=== PATIENT | female | born 1985 | race Caucasian/White ===

== ENCOUNTER 2017-03-17 07:03 | Inpatient (IN) | payer BC ==
--- NOTE | 2017-03-17 07:18 | PCM.LDHP ---
L&D History of Present Illness - General Date of Service: 03/17/17 Admit Problem/Dx: Admission Diagnosis/Problem Admission Diagnosis/Problem Source of Information: Patient History Limitations: Reports: No limitations - History of Present Illness Introduction:: Patient is a 31 y/o at 39 3/7 wks who presents for elective IOL due to distance form hospital. Has been doing well since last seen. No major issues. Getting good FM. Some irregular contractions. 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: Ectopic (1), , Spontaneous (2) : 7 Para: 3 LMP (Approximate): Musculoskeletal History: Reports: Fibromyalgia Neurological History: Reports: Headaches, chronic, Seizure, Other (see below) ( History multiple neurological evaluations - 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, but had these diagnoses removed from problem list by subsequent Neurology evaluation) - Past Surgical History Neurological Surgical History: Reports: Other (see below) (lumbar puncture) Social & Family History - Tobacco Use Smoking Status *Q: Current Every Day Smoker - Alcohol Use Alcohol Use History: No - Recreational Drug Use Recreational Drug Use: No H&P Review of Systems - Review of Systems: Review Of Systems: See Below General: Reports: no symptoms Pulmonary: Reports: No Symptoms Cardiovascular: Reports: no symptoms Gastrointestinal: Reports: No symptoms Genitourinary: Reports: no symptoms Musculoskeletal: Reports: no symptoms Psychiatric: Reports: no symptoms Neurological: Reports: Headache L&D Exam - Exam Exam: See Below - Vital Signs Weight: 109.769 kg - OB Specific Contraction Intensity: Irritability movement: active heart tones: present heart tones per min: 135 Heart Rate (FHR) Variability: Moderate (6-25 bmp) Presentation: Vertex - Coker Score Coker Score Cervix Position: Midposition Coker Score Consistency: Soft Coker Score Effacement: 51-70% Coker Score Dilation: 3-4 cm Coker Score 's Station: -2 Coker Score Total: 8 - Exam General: alert, oriented, cooperative Lungs: Clear to auscultation, Normal respiratory effort Cardiovascular: regular rate, regular rhythm Abdomen: soft Genitourinary: Normal external exam Back Exam: normal inspection Extremities: normal inspection Skin: warm, dry, intact - Patient Data Result Diagrams: 03/17/17 07:50 - Problem List (1) 39 weeks gestation of SNOMED Code(s): 61393089 ICD Code: Z3A.39 - 39 WEEKS GESTATION OF Status: Acute Current Visit: Yes (2) Elective induction of labor planned SNOMED Code(s): 523540455 ICD Code: [id number] - Status: Acute Current Visit: Yes (3) Seizure disorder SNOMED Code(s): 874392784 ICD Code: G40.909 - EPILEPSY, UNSP, NOT INTRACTABLE, WITHOUT STATUS EPILEPTICUS Status: Acute Current Visit: Yes Problem List Initiated/Reviewed/Updated: Yes Assessment/Plan Comment:: at 39 3/7 wks presents for elective IOL IOL * CBC and T&S * GBS negative, no need for antibiotics * Pitocin and then AROM when able * Anticipate Reported history of neurological disorders * Will continue home Zonisamide, needs neurology follow up post delivery * Patient with conflicting information whether she truly has ICH or Arnold Chiari. Neurology evaluation in stated she did not carry these diagnoses. Regardless, have made Anesthesia aware last week about patient's induction today. They will discuss pain management options with her today. Ultimately up to patient what, if anything, she would like for pain control in labor.
[2017-03-17] MEDS ORDERED: Acetaminophen 325 MG Tab PO PRN ×2 (07:20→19:49)
[2017-03-17] MEDS ORDERED: Ondansetron 4 MG/2 ML SDV IVPUSH PRN ×2 (07:20→12:07)
[2017-03-17] MEDS ORDERED: Sodium Chloride 0.9% 10 ML Syringe FLUSH PRN (07:20)
[2017-03-17] MEDS ORDERED: Lactated Ringers 1,000 ML IV SCH (07:30)
[2017-03-17] MEDS ORDERED: Oxytocin/Lactated Ringers 10 UNIT/1,000 ML BAG IV SCH ×2 (07:30)
[2017-03-17] MEDS ORDERED: ZONISAMIDE 100 MG CAPSULE PO SCH (09:00)
--- NOTE | 2017-03-17 09:51 | PCM.PREANE ---
Preanesthetic Assessment - Anesthesia/Transfusion/Family Hx Anesthesia History: Prior Anesthesia Without Reaction Type of Anesthesia Reaction: Unknown Family History of Anesthesia Reaction: No Transfusion History: No Prior Transfusion(s) Type of Transfusion Reactions: Reports: Unknown Intubation History: Unknown Additional History: DDD lumbar spine, cervical spondylosis - Review of Systems General: No Symptoms Pulmonary: No Symptoms Cardiovascular: No Symptoms Gastrointestinal: No symptoms Neurological: Headache (hasnt had a headache since the first trimester ), Seizure ("silent seizure activity" noted by about a month ago), Other ( HX of Arnold charari? with increased intracranial pressures, fibromyalagia ) Other: Reports: None - Physical Assessment NPO Status Date: 03/17/17 NPO Status Time: 06:00 Respiratory Rate: 18 Vital Signs: Last Vital Signs Temp 37.1 C 03/17/17 07:20 Pulse 100 03/17/17 07:20 Resp 18 03/17/17 07:20 BP 127/76 03/17/17 07:20 Pulse Ox Height: 1.6 m Weight: 111.856 kg ASA Class: 2 Mental Status: Alert & Oriented x3 Airway Class: Mallampati = 1 Dentition: Reports: Normal Dentition Thyro-Mental Finger Breadths: 3 Mouth Opening Finger Breadths: 3 ROM/Head Extension: Full Lungs: Clear to auscultation, Normal respiratory effort Cardiovascular: Regular Rate, Regular Rhythm - Lab Values: Laboratory Last Values WBC 11.65 K/mm3 (3.98-10.04) H 03/17/17 07:50 RBC 3.95 M/mm3 (3.98-5.22) L 03/17/17 07:50 Hgb 10.6 gm/L (11.2-15.7) L 03/17/17 07:50 Hct 32.2 % (34.1-44.9) L 03/17/17 07:50 MCV 81.5 fl (79.4-94.8) 03/17/17 07:50 MCH 26.8 pg (25.6-32.2) 03/17/17 07:50 MCHC 32.9 g/dl (32.2-35.5) 03/17/17 07:50 RDW Std Deviation 40.9 fL (36.4-46.3) 03/17/17 07:50 Plt Count 278 K/mm3 (182-369) 03/17/17 07:50 MPV 11.3 fl (9.4-12.3) 03/17/17 07:50 - Allergies Allergies/Adverse Reactions: Allergies Allergy/AdvReac Type Severity Reaction Status Date / Time dinoprostone [From Cervidil] Allergy Anaphylactic Verified 03/17/17 07:46 Shock topiramate Allergy Hallucinati Verified 03/17/17 07:46 ons - Blood Blood Available: No Product(s) Available: None - Anesthesia Plan Pre-Op Medication Ordered: None - Acknowledgements Anesthesia Type Planned: Spinal (spinal if patient doesnt have an epidural and we are doing an emergent ), Epidural (Discussed with patient and spouse in detail about her current conditions of the chiari malformation, DDD lumbar, seizures, and she has had 3 prior uneventful epidurals. Patient has all questions answered. ) Pt an Appropriate Candidate for the Planned Anesthesia: Yes Alternatives and Risks of Anesthesia Discussed w Pt/Guardian: Yes Pt/Guardian Understands and Agrees with Anesthesia Plan: Yes PreAnesthesia Questionnaire Respiratory History: Reports: Other (see below) Other Respiratory History: snoring [employer] History: Reports: Ectopic , , Spontaneous Musculoskeletal History: Reports: Fibromyalgia, Other (see below) Other Musculoskeletal History: chronic pain. Spondylosis of cervical spine. Degenerative disc disease thoracis and lumbar. Bursitis of bilateral hips and knees. Neurological History: Reports: Headaches, chronic, Seizure Psychiatric History: Reports: Anxiety, Depression - Past Surgical History HEENT Surgical History: Reports: Oral surgery - SUBSTANCE USE Smoking Status *Q: Current Every Day Smoker Tobacco Use Within Last Twelve Months: Cigarettes Recreational Drug Use History: No - HOME MEDS Home Medications: Home Meds Acetaminophen with Codeine [Tylenol with Codeine #3 Tablet] 03/17/17 [History] Gabapentin [Neurontin] 400 mg PO TID 03/17/17 [History] ATF521/Iron Fumarate/FA/DSS [ 19 Tablet] 03/17/17 [History] Zonisamide [Zonegran] 1 cap PO BID 03/17/17 [History] diphenhydrAMINE [Benadryl] 03/17/17 [History] - CURRENT (IN HOUSE) MEDS Current Meds: Current Medications Acetaminophen (Tylenol) 650 mg PO Q4H PRN PRN Reason: Pain (Mild 1-3) and fever Lactated Ringer's (Ringers, Lactated) 1,000 mls @ 40 mls/hr IV ASDIRECTED [facility] Last Admin: 03/17/17 08:34 Dose: 40 mls/hr Oxytocin/Lactated Ringer's (Pitocin In Lr 10 Units/1,000 Ml) 10 unit in 1,000 mls @ 500 mls/hr IV TITRATE KATIE PRN Reason: Protocol Oxytocin/Lactated Ringer's (Pitocin In Lr 10 Units/1,000 Ml) 10 unit in 1,000 mls @ 12 mls/hr IV TITRATE KATIE; 2 MUNITS/MIN PRN Reason: Protocol Last Titration: 03/17/17 09:18 Dose: 4 munits/min, 24 mls/hr Nalbuphine HCl (Nubain) 10 mg IVPUSH Q2H PRN PRN Reason: Pain (moderate 4-6) Ondansetron HCl (Zofran) 4 mg IVPUSH Q4H PRN PRN Reason: Nausea/Vomiting Zonisamide 100 Mg (Capsule) 0 each PO BID [facility] Last Admin: 03/17/17 08:35 Dose: 1 each Sodium Chloride (Saline Flush) 10 ml FLUSH ASDIRECTED PRN PRN Reason: Keep Vein Open
[2017-03-17] MEDS ORDERED: ePHEDrine 50 MG/ML SDV IVPUSH PRN (12:07)
[2017-03-17] MEDS ORDERED: fentaNYL 100 MCG/2 ML SDV EPIDUR PRN (12:07)
[2017-03-17] MEDS ORDERED: diphenhydrAMINE 50 MG/ML SDV IVPUSH PRN (12:07)
[2017-03-17] MEDS ORDERED: Bupivacaine/fentaNYL/NS 100 ML Bag EPIDUR SCH (12:15)
--- NOTE | 2017-03-17 12:20 | PCM.PNLD ---
Labor Progress Note - VS & Meds Vital Signs: Last Vital Signs Temp 37.1 C 03/17/17 07:20 Pulse 100 03/17/17 07:20 Resp 18 03/17/17 10:08 BP 127/76 03/17/17 07:20 Pulse Ox Active Medications: Current Medications Acetaminophen (Tylenol) 650 mg PO Q4H PRN PRN Reason: Pain (Mild 1-3) and fever Diphenhydramine HCl (Benadryl) 25 mg IVPUSH Q6H PRN PRN Reason: Pruritis Ephedrine Sulfate (Ephedrine Sulfate) 5 mg IVPUSH ASDIRECTED PRN PRN Reason: Hypotension Fentanyl (Sublimaze) 100 mcg EPIDUR Q3H PRN PRN Reason: Pain Fentanyl/Bupivacaine HCl (Fentanyl/Bupivacaine/Ns 2 Mcg-0.125% 100 Ml) 100 ml EPIDUR ASDIRECTED KATIE Lactated Ringer's (Ringers, Lactated) 1,000 mls @ 40 mls/hr IV ASDIRECTED KATIE Last Admin: 03/17/17 08:34 Dose: 40 mls/hr Oxytocin/Lactated Ringer's (Pitocin In Lr 10 Units/1,000 Ml) 10 unit in 1,000 mls @ 500 mls/hr IV TITRATE KATIE PRN Reason: Protocol Oxytocin/Lactated Ringer's (Pitocin In Lr 10 Units/1,000 Ml) 10 unit in 1,000 mls @ 12 mls/hr IV TITRATE KATIE; 2 MUNITS/MIN PRN Reason: Protocol Last Titration: 03/17/17 12:05 Dose: 6 munits/min, 36 mls/hr Nalbuphine HCl (Nubain) 10 mg IVPUSH Q2H PRN PRN Reason: Pain (moderate 4-6) Ondansetron HCl (Zofran) 4 mg IVPUSH Q4H PRN PRN Reason: Nausea/Vomiting Ondansetron HCl (Zofran) 4 mg IVPUSH ONETIME PRN PRN Reason: Nausea/Vomiting Zonisamide 100 Mg (Capsule) 0 each PO BID KATIE Last Admin: 03/17/17 08:35 Dose: 1 each Sodium Chloride (Saline Flush) 10 ml FLUSH ASDIRECTED PRN PRN Reason: Keep Vein Open - Uterine Contractions Uterine Monitoring Mode: External [place] Contraction Intensity: Moderate Uterine Resting Tone: Soft - Monitoring Monitor Mode: External Ultrasound Heart Rate (FHR) Baseline: 125 Heart Rate (FHR) Variability: Moderate (6-25 bmp) Accelerations: Present, 15x15 Decelerations: None Strip Review: Category I - Vaginal Exam Dilation (cm): 3 Effacement (Percent): 80 Station: 0 Cervical Position: Posterior - Labor Progress (Free Text) Labor Progress: Patient doing well. On 6 of pitocin. Offered AROM, but patient declines due to feeling uncomfortable with check. Will continue present management. Nursing to assess in 2-3 hours. If no change and not able to go up on pitocin due to frequency of contractions and re-discuss AROM.
--- NOTE | 2017-03-17 15:35 | PCM.PNLD ---
Labor Progress Note - VS & Meds Vital Signs: Last Vital Signs Temp 37.1 C 03/17/17 07:20 Pulse 100 03/17/17 07:20 Resp 18 03/17/17 10:08 BP 127/76 03/17/17 07:20 Pulse Ox Active Medications: Current Medications Acetaminophen (Tylenol) 650 mg PO Q4H PRN PRN Reason: Pain (Mild 1-3) and fever Diphenhydramine HCl (Benadryl) 25 mg IVPUSH Q6H PRN PRN Reason: Pruritis Ephedrine Sulfate (Ephedrine Sulfate) 5 mg IVPUSH ASDIRECTED PRN PRN Reason: Hypotension Fentanyl (Sublimaze) 100 mcg EPIDUR Q3H PRN PRN Reason: Pain Fentanyl/Bupivacaine HCl (Fentanyl/Bupivacaine/Ns 2 Mcg-0.125% 100 Ml) 100 ml EPIDUR ASDIRECTED KATIE Lactated Ringer's (Ringers, Lactated) 1,000 mls @ 40 mls/hr IV ASDIRECTED KATIE Last Admin: 03/17/17 08:34 Dose: 40 mls/hr Oxytocin/Lactated Ringer's (Pitocin In Lr 10 Units/1,000 Ml) 10 unit in 1,000 mls @ 500 mls/hr IV TITRATE KATIE PRN Reason: Protocol Oxytocin/Lactated Ringer's (Pitocin In Lr 10 Units/1,000 Ml) 10 unit in 1,000 mls @ 12 mls/hr IV TITRATE KATIE; 2 MUNITS/MIN PRN Reason: Protocol Last Titration: 03/17/17 14:16 Dose: 6 munits/min, 36 mls/hr Nalbuphine HCl (Nubain) 10 mg IVPUSH Q2H PRN PRN Reason: Pain (moderate 4-6) Ondansetron HCl (Zofran) 4 mg IVPUSH Q4H PRN PRN Reason: Nausea/Vomiting Ondansetron HCl (Zofran) 4 mg IVPUSH ONETIME PRN PRN Reason: Nausea/Vomiting Zonisamide 100 Mg (Capsule) 0 each PO BID KATIE Last Admin: 03/17/17 08:35 Dose: 1 each Sodium Chloride (Saline Flush) 10 ml FLUSH ASDIRECTED PRN PRN Reason: Keep Vein Open - Uterine Contractions Uterine Monitoring Mode: External [place] Contraction Intensity: Moderate Uterine Resting Tone: Soft - Monitoring Monitor Mode: External Ultrasound Heart Rate (FHR) Baseline: 130 Heart Rate (FHR) Variability: Moderate (6-25 bmp) Accelerations: Present, 15x15 Decelerations: None Strip Review: Category I - Vaginal Exam Dilation (cm): 3 Effacement (Percent): 80 Station: 0 Cervical Position: Posterior - Labor Progress (Free Text) Labor Progress: Patient doing well. Still only on 6 of pitocin due to frequency of contractions. No cervical change in last 2.5 hours. AROM performed with release of clear fluid. Continue present management.
[2017-03-17] MEDS: Nalbuphine 20 MG/1 ML Amp IVPUSH PRN ×2 (16:20→18:21)
--- NOTE | 2017-03-17 17:27 | PCM.PNLD ---
Labor Progress Note - VS & Meds Vital Signs: Last Vital Signs Temp 37.1 C 03/17/17 07:20 Pulse 100 03/17/17 07:20 Resp 18 03/17/17 10:08 BP 127/76 03/17/17 07:20 Pulse Ox Active Medications: Current Medications Acetaminophen (Tylenol) 650 mg PO Q4H PRN PRN Reason: Pain (Mild 1-3) and fever Diphenhydramine HCl (Benadryl) 25 mg IVPUSH Q6H PRN PRN Reason: Pruritis Ephedrine Sulfate (Ephedrine Sulfate) 5 mg IVPUSH ASDIRECTED PRN PRN Reason: Hypotension Fentanyl (Sublimaze) 100 mcg EPIDUR Q3H PRN PRN Reason: Pain Fentanyl/Bupivacaine HCl (Fentanyl/Bupivacaine/Ns 2 Mcg-0.125% 100 Ml) 100 ml EPIDUR ASDIRECTED KATIE Lactated Ringer's (Ringers, Lactated) 1,000 mls @ 40 mls/hr IV ASDIRECTED KATIE Last Admin: 03/17/17 08:34 Dose: 40 mls/hr Oxytocin/Lactated Ringer's (Pitocin In Lr 10 Units/1,000 Ml) 10 unit in 1,000 mls @ 500 mls/hr IV TITRATE KATIE PRN Reason: Protocol Oxytocin/Lactated Ringer's (Pitocin In Lr 10 Units/1,000 Ml) 10 unit in 1,000 mls @ 12 mls/hr IV TITRATE KATIE; 2 MUNITS/MIN PRN Reason: Protocol Last Titration: 03/17/17 16:24 Dose: 4 munits/min, 24 mls/hr Nalbuphine HCl (Nubain) 10 mg IVPUSH Q2H PRN PRN Reason: Pain (moderate 4-6) Last Admin: 03/17/17 16:20 Dose: 10 mg Ondansetron HCl (Zofran) 4 mg IVPUSH Q4H PRN PRN Reason: Nausea/Vomiting Ondansetron HCl (Zofran) 4 mg IVPUSH ONETIME PRN PRN Reason: Nausea/Vomiting Zonisamide 100 Mg (Capsule) 0 each PO BID KATIE Last Admin: 03/17/17 08:35 Dose: 1 each Sodium Chloride (Saline Flush) 10 ml FLUSH ASDIRECTED PRN PRN Reason: Keep Vein Open - Uterine Contractions Uterine Monitoring Mode: External [place] Contraction Intensity: Moderate Uterine Resting Tone: Soft - Monitoring Monitor Mode: External Ultrasound Heart Rate (FHR) Baseline: 120 Heart Rate (FHR) Variability: Moderate (6-25 bmp) Accelerations: Present, 15x15 Decelerations: None Strip Review: Category I - Vaginal Exam Dilation (cm): 5 Effacement (Percent): 90 Station: 0 Cervical Position: Posterior - Labor Progress (Free Text) Labor Progress: Doing well. Feeling more pressure at times. Cervix posterior, but more dilated. Pitocin down to 4. Continue present management.
[2017-03-17] MEDS ORDERED: Lidocaine 1% 50 ML MDV ONE (19:17)
[2017-03-17] MEDS ORDERED: fentaNYL 100 MCG/2 ML SDV IVPUSH ONE (19:23)
[2017-03-17] MEDS ORDERED: Lidocaine 1% 10 ML MDV INJECT ONE (19:24)
--- NOTE | 2017-03-17 19:42 | PCM.DEL ---
L & D Note - General Info Date of Service: 03/17/17 - Delivery Note Labor: induced by ARM, induced by oxytocin Delivery Outcome: Livebirth Infant Delivery Method: Spontaneous Vaginal Delivery Infant Delivery Mode: Spontaneous Presentation: Right Occiput Posterior (ROP) Nuchal cord: present Anesthesia Type: None Anesthetic: lidocaine (xylocaine) 1% plain Local anesthetic volume: 5cc Amniotic Fluid Description: Clear Episiotomy Type: None Laceration: 2nd degree Suture type: vicryl Suture size: 2-0 Placenta: intact, spontaneous Cord: 3 vessels Estimated blood loss: 300 Resuscitation needed: Yes : bulb syringe, stimulated, warmed, blanket used, warmer used Score 1 min: 9 Score 5 min: 9 Delivery Comments (Free Text/Narrative):: Patient found to be complete and began pushing. With maternal pushing effort head delivered from an ROP presentation. Nuchal cord present, but not able to be reduced due to speed of delivery. With gentle traction shoulders and body delivered. placed on maternal abdomen. Cord clamped and cut. Cord blood obtained. Placenta allowed time to separate and spontaneously expelled. Inspection of the perineum showed a small 2nd degree laceration. Patient given 100 mcg of fentanyl and small amount of 1% lidocaine infiltrated for local anesthesia. Repair then done with a 2-0 vicryl rapide in the typical fashion. - Patient Data Vitals - most recent: Last Vital Signs Temp 37.1 C 03/17/17 07:20 Pulse 100 03/17/17 07:20 Resp 18 03/17/17 10:08 BP 127/76 03/17/17 07:20 Pulse Ox Weight - most recent: 111.856 kg I&O - last 24 hours: Intake & Output 03/17/17 03/17/17 03/17/17 06:59 14:59 22:59 Intake Total 1000 Balance 1000 Lab Results last 24 hrs: Laboratory Results - last 24 hr 03/17/17 03/17/17 Range/Units 07:50 07:50 WBC 11.65 H (3.98-10.04) K/mm3 RBC 3.95 L (3.98-5.22) M/mm3 Hgb 10.6 L (11.2-15.7) gm/L Hct 32.2 L (34.1-44.9) % MCV 81.5 (79.4-94.8) fl MCH 26.8 (25.6-32.2) pg MCHC 32.9 (32.2-35.5) g/dl RDW Std Deviation 40.9 (36.4-46.3) fL Plt Count 278 (182-369) K/mm3 MPV 11.3 (9.4-12.3) fl Blood Type A POSITIVE Gel Antibody Screen Negative Med Orders - Current: Current Medications Acetaminophen (Tylenol) 650 mg PO Q4H PRN PRN Reason: Pain (Mild 1-3) and fever Diphenhydramine HCl (Benadryl) 25 mg IVPUSH Q6H PRN PRN Reason: Pruritis Ephedrine Sulfate (Ephedrine Sulfate) 5 mg IVPUSH ASDIRECTED PRN PRN Reason: Hypotension Fentanyl (Sublimaze) 100 mcg EPIDUR Q3H PRN PRN Reason: Pain Fentanyl/Bupivacaine HCl (Fentanyl/Bupivacaine/Ns 2 Mcg-0.125% 100 Ml) 100 ml EPIDUR ASDIRECTED KATIE Lactated Ringer's (Ringers, Lactated) 1,000 mls @ 40 mls/hr IV ASDIRECTED KATIE Last Admin: 03/17/17 08:34 Dose: 40 mls/hr Oxytocin/Lactated Ringer's (Pitocin In Lr 10 Units/1,000 Ml) 10 unit in 1,000 mls @ 500 mls/hr IV TITRATE KATIE PRN Reason: Protocol Oxytocin/Lactated Ringer's (Pitocin In Lr 10 Units/1,000 Ml) 10 unit in 1,000 mls @ 12 mls/hr IV TITRATE KATIE; 2 MUNITS/MIN PRN Reason: Protocol Last Titration: 03/17/17 19:11 Dose: 0 munits/min, 0 mls/hr Nalbuphine HCl (Nubain) 10 mg IVPUSH Q2H PRN PRN Reason: Pain (moderate 4-6) Last Admin: 03/17/17 18:21 Dose: 10 mg Non-Formulary Medication (Gabapentin) 400 mg PO TID KATIE Non-Formulary Medication (Zonisamide [Zonegran]) 1 cap PO BID KATIE Ondansetron HCl (Zofran) 4 mg IVPUSH Q4H PRN PRN Reason: Nausea/Vomiting Ondansetron HCl (Zofran) 4 mg IVPUSH ONETIME PRN PRN Reason: Nausea/Vomiting Zonisamide 100 Mg (Capsule) 0 each PO BID KATIE Last Admin: 03/17/17 08:35 Dose: 1 each Sodium Chloride (Saline Flush) 10 ml FLUSH ASDIRECTED PRN PRN Reason: Keep Vein Open Discontinued Medications Fentanyl (Sublimaze) 100 mcg IVPUSH ONETIME ONE Stop: 03/17/17 19:24 Last Admin: 03/17/17 19:20 Dose: 100 mcg Lidocaine HCl (Xylocaine 1%) Confirm Administered Dose 50 ml .ROUTE .STK-MED ONE Stop: 03/17/17 19:18 Last Admin: 03/17/17 19:26 Dose: Not Given Lidocaine HCl (Xylocaine 1%) 10 ml INJECT ONETIME ONE Stop: 03/17/17 19:25 Last Admin: 03/17/17 19:25 Dose: 10 ml - Problem List & Annotations (1) 39 weeks gestation of SNOMED Code(s): 89700601 Code(s): Z3A.39 - 39 WEEKS GESTATION OF Status: Acute Current Visit: Yes (2) Elective induction of labor planned SNOMED Code(s): 200937661 Code(s): FVY0664 - Status: Acute Current Visit: Yes (3) Seizure disorder SNOMED Code(s): 197808971 Code(s): G40.909 - EPILEPSY, UNSP, NOT INTRACTABLE, WITHOUT STATUS EPILEPTICUS Status: Acute Current Visit: Yes - Problem List Review Problem List Initiated/Reviewed/Updated: Yes - My Orders Last 24 Hours: My Active Orders 03/17/17 07:20 Patient Status [ADT] Routine Activity as Tolerated [RC] PFP Communication Order [RC] ASDIRECTED Communication Order [RC] ASDIRECTED Notify Provider [RC] ASDIRECTED Notify Provider [RC] PRN Vital Signs [RC] PER UNIT ROUTINE Acetaminophen [Tylenol] 650 mg PO Q4H PRN Nalbuphine [Nubain] 10 mg IVPUSH Q2H PRN Ondansetron [Zofran] 4 mg IVPUSH Q4H PRN Sodium Chloride 0.9% [Saline Flush] 10 ml FLUSH ASDIRECTED PRN Electronic Heart Tones Ext w TOCO [WOMSER] Routine Electronic Heart Tones Internal [WOMSER] Per Unit Routine Peripheral IV Insertion Adult [OM.PC] Routine Resuscitation Status Routine 03/17/17 07:21 Heart Tones [RC] ASDIRECTED Peripheral IV Care [RC] . DIRECTED 03/17/17 07:30 Lactated Ringers [Ringers, Lactated] 1,000 ml IV ASDIRECTED Oxytocin/Lactated Ringers [Pitocin in LR 10 Units/1,000 ML] 10 unit in 1,000 ml IV TITRATE Oxytocin/Lactated Ringers [Pitocin in LR 10 Units/1,000 ML] 10 unit in 1,000 ml IV TITRATE 03/17/17 07:50 PATIENT RETYPE [BBK] Routine TYPE AND SCREEN [BBK] Routine 03/17/17 09:00 Patient's Own Medication [Ptom] 0 each PO BID 03/17/17 19:39 Patient Status Manage Transfer [TRANSFER] Routine 03/17/17 21:00 Gabapentin 400 mg PO TID Zonisamide [Zonegran] 1 cap PO BID 03/17/17 Breakfast Regular Diet [DIET] - Assessment Assessment:: G7 now [id number] PPD#0 from at 39 3/7 wks - Plan Plan:: * Routine cares * Encourage breast feeding * Discharge home in 1-2 days Reported history of neurological disorders and chronic headaches * Will continue home Zonisamide - acceptable in breast feeding, but will combine with formula feeding. Lact Med database reviewed. * Hold Gabapentin for now * T3 to be ordered * Needs Neurology follow up after delivery
[2017-03-17] MEDS ORDERED: Lanolin 100% Cream 7 GM Tube TOP PRN (19:49)
[2017-03-17] MEDS ORDERED: Benzocaine/Menthol 20%-0.5% Spray 56 GM Canister TOP PRN (19:49)
[2017-03-17] MEDS ORDERED: Docusate Sodium 100 MG Cap PO PRN (19:49)
[2017-03-17] MEDS ORDERED: Witch Hazel Medicated Pads 100/Jar TOP PRN (19:49)
[2017-03-17] MEDS ORDERED: ZONISAMIDE PO SCH (21:00)
[2017-03-17] MEDS ORDERED: Non-Formulary Medication 1 Each (Gabapentin 400 MG) PO SCH (21:00)
[2017-03-17] MEDS: Ibuprofen 600 MG Tab PO PRN (21:52)
[2017-03-17] MEDS: ZONISAMIDE 100 MG CAPSULE PO SCH (21:53)
--- NOTE | 2017-03-18 07:03 | PCM.PNPP ---
- General Info Date of Service: 03/18/17 Functional Status: Reports: pain controlled, tolerating diet, ambulating, urinating - Review of Systems General: Reports: No Symptoms Pulmonary: Reports: no symptoms Cardiovascular: Reports: No Symptoms Gastrointestinal: Reports: No symptoms Genitourinary: Reports: no symptoms - Patient Data Vital Signs - most recent: Last Vital Signs Temp 36.4 C 03/18/17 03:51 Pulse 85 03/18/17 03:51 Resp 18 03/18/17 03:51 BP 118/59 L 03/18/17 03:51 Pulse Ox 100 03/18/17 03:51 Weight - most recent: 111.856 kg I&O - last 24 hours: Intake & Output 03/17/17 03/18/17 03/18/17 22:59 06:59 14:59 Intake Total 1000 Balance 1000 Lab Results - last 24 hrs: Laboratory Results - last 24 hr 03/17/17 03/17/17 Range/Units 07:50 07:50 WBC 11.65 H (3.98-10.04) K/mm3 RBC 3.95 L (3.98-5.22) M/mm3 Hgb 10.6 L (11.2-15.7) gm/L Hct 32.2 L (34.1-44.9) % MCV 81.5 (79.4-94.8) fl MCH 26.8 (25.6-32.2) pg MCHC 32.9 (32.2-35.5) g/dl RDW Std Deviation 40.9 (36.4-46.3) fL Plt Count 278 (182-369) K/mm3 MPV 11.3 (9.4-12.3) fl Blood Type A POSITIVE Gel Antibody Screen Negative Med Orders - Current: Current Medications Acetaminophen (Tylenol) 650 mg PO Q4H PRN PRN Reason: mild pain or fever Acetaminophen/Codeine Phosphate (Tylenol With Codeine No.3 300mg/30mg) 2 tab PO Q4H PRN PRN Reason: Pain (moderate 4-6) Benzocaine/Menthol (Dermoplast Pain Relief [place]) 0 gm TOP ASDIRECTED PRN PRN Reason: Perineal Comfort Measure Last Admin: 03/17/17 21:52 Dose: 1 applic Docusate Sodium (Colace) 100 mg PO BID PRN PRN Reason: Constipation Last Admin: 03/18/17 00:29 Dose: 100 mg Emollient Ointment (Lansinoh Hpa) 0 gm TOP ASDIRECTED PRN PRN Reason: Sore Nipples Ibuprofen (Motrin) 600 mg PO Q6H PRN PRN Reason: Mild pain or fever Last Admin: 03/17/17 21:52 Dose: 600 mg Zonisamide 100 Mg (Capsule) 0 each PO BID KATIE Last Admin: 03/17/17 21:53 Dose: 1 each Witch Kalie (Tucks) 1 pad TOP ASDIRECTED PRN PRN Reason: Hemorrhoid pain Last Admin: 03/17/17 21:52 Dose: 1 applic Discontinued Medications Acetaminophen (Tylenol) 650 mg PO Q4H PRN PRN Reason: Pain (Mild 1-3) and fever Diphenhydramine HCl (Benadryl) 25 mg IVPUSH Q6H PRN PRN Reason: Pruritis Ephedrine Sulfate (Ephedrine Sulfate) 5 mg IVPUSH ASDIRECTED PRN PRN Reason: Hypotension Fentanyl (Sublimaze) 100 mcg EPIDUR Q3H PRN PRN Reason: Pain Fentanyl (Sublimaze) 100 mcg IVPUSH ONETIME ONE Stop: 03/17/17 19:24 Last Admin: 03/17/17 19:20 Dose: 100 mcg Fentanyl/Bupivacaine HCl (Fentanyl/Bupivacaine/Ns 2 Mcg-0.125% 100 Ml) 100 ml EPIDUR ASDIRECTED KATIE Lactated Ringer's (Ringers, Lactated) 1,000 mls @ 40 mls/hr IV ASDIRECTED KATIE Last Admin: 03/17/17 08:34 Dose: 40 mls/hr Oxytocin/Lactated Ringer's (Pitocin In Lr 10 Units/1,000 Ml) 10 unit in 1,000 mls @ 500 mls/hr IV TITRATE KATIE PRN Reason: Protocol Oxytocin/Lactated Ringer's (Pitocin In Lr 10 Units/1,000 Ml) 10 unit in 1,000 mls @ 12 mls/hr IV TITRATE KATIE; 2 MUNITS/MIN PRN Reason: Protocol Last Titration: 03/17/17 19:11 Dose: 0 munits/min, 0 mls/hr Lidocaine HCl (Xylocaine 1%) Confirm Administered Dose 50 ml .ROUTE .STK-MED ONE Stop: 03/17/17 19:18 Last Admin: 03/17/17 19:26 Dose: Not Given Lidocaine HCl (Xylocaine 1%) 10 ml INJECT ONETIME ONE Stop: 03/17/17 19:25 Last Admin: 03/17/17 19:25 Dose: 10 ml Nalbuphine HCl (Nubain) 10 mg IVPUSH Q2H PRN PRN Reason: Pain (moderate 4-6) Last Admin: 03/17/17 18:21 Dose: 10 mg Non-Formulary Medication (Gabapentin) 400 mg PO TID KATIE Non-Formulary Medication (Zonisamide [Zonegran]) 1 cap PO BID KATIE Ondansetron HCl (Zofran) 4 mg IVPUSH Q4H PRN PRN Reason: Nausea/Vomiting Ondansetron HCl (Zofran) 4 mg IVPUSH ONETIME PRN PRN Reason: Nausea/Vomiting Zonisamide 100 Mg (Capsule) 0 each PO BID KATIE Last Admin: 03/17/17 08:35 Dose: 1 each Sodium Chloride (Saline Flush) 10 ml FLUSH ASDIRECTED PRN PRN Reason: Keep Vein Open - Infant Interaction Disposition, : [place] in Room with Family Infant Interaction: Holding Infant Feeding: Bottle Fed Infant Support Person: - Recovery Exam Fundal Tone: Firm Fundal Level: 1 Fingerbreadths Below Umbilicus Fundal Placement: Midline Lochia Amount: Small Lochia Color: Rubra/Red Bladder Status: Voiding - Exam General: alert, oriented, cooperative Abdomen: soft, no tenderness Extremities: edema Skin: warm, dry, intact - Problem List & Annotations (1) 39 weeks gestation of SNOMED Code(s): 38631332 Code(s): Z3A.39 - 39 WEEKS GESTATION OF Status: Acute Current Visit: Yes (2) Elective induction of labor planned SNOMED Code(s): 861085276 Code(s): [id number] - Status: Acute Current Visit: Yes (3) Seizure disorder SNOMED Code(s): 562465157 Code(s): G40.909 - EPILEPSY, UNSP, NOT INTRACTABLE, WITHOUT STATUS EPILEPTICUS Status: Acute Current Visit: Yes (4) Vaginal delivery SNOMED Code(s): 984224555 Code(s): O80 - ENCOUNTER FOR FULL-TERM UNCOMPLICATED DELIVERY Status: Acute Current Visit: Yes - Problem List Review Problem List Initiated/Reviewed/Updated: Yes - My Orders Last 24 Hours: My Active Orders 03/17/17 07:20 Resuscitation Status Routine 03/17/17 07:21 Heart Tones [RC] ASDIRECTED 03/17/17 19:49 Activity as Tolerated [RC] PER UNIT ROUTINE Vital Signs [RC] 04,12,20 Acetaminophen [Tylenol] 650 mg PO Q4H PRN Acetaminophen/Codeine [Tylenol with Codeine No.3 300MG/30MG] 2 tab PO Q4H PRN Benzocaine/Menthol [Dermoplast Pain Relief [place]] See Dose Instructions TOP ASDIRECTED PRN Docusate Sodium [Colace] 100 mg PO BID PRN Ibuprofen [Motrin] 600 mg PO Q6H PRN Lanolin [Lansinoh HPA] See Dose Instructions TOP ASDIRECTED PRN Witch Kalie [Tucks] 1 pad TOP ASDIRECTED PRN Assess Lochia [WOMSER] Per Unit Routine Assess Uterine Involution [WOMSER] Per Unit Routine Breast Pump [WOMSER] Per Unit Routine Heat Therapy [OM.PC] PRN Ice Therapy [OM.PC] Per Unit Routine Perineal Care [OM.PC] Per Unit Routine Peripheral IV Discontinue [OM.PC] Routine Sitz Bath [OM.PC] Per Unit Routine 03/17/17 21:00 Patient's Own Medication [Ptom] 0 each PO BID 03/17/17 Dinner Regular Diet [DIET] 03/18/17 19:49 Heat Therapy [OM.PC] PRN - Assessment Assessment:: G7 now [id number] PPD#1 from at 39 3/7 wks - Plan Plan:: * Routine cares * Encourage breast feeding * Discharge home possibly today depending upon pediatric evaluation of baby Reported history of neurological disorders and chronic headaches * Will continue home Zonisamide - acceptable in breast feeding, but will combine with formula feeding. Lact Med database reviewed. * Hold Gabapentin for now - patient states she did take her own medication last night. Is aware of risks of multiple medications that could cause sedation in baby * Needs Neurology follow up after delivery
[2017-03-18] MEDS: ZONISAMIDE 100 MG CAPSULE PO SCH (09:40)
[2017-03-18] MEDS: Acetaminophen/Codeine 300-30 MG Tab PO PRN ×2 (09:44→19:26)
[2017-03-18] MEDS: Ibuprofen 600 MG Tab PO PRN (11:39)
[2017-03-18 15:36] VITALS: BP 108/80
--- NOTE | 2017-03-18 20:23 | PCM.DCSUM1 ---
Discharge Summary - Discharge Data Discharge Date: 03/18/17 Discharge Disposition: Home, Self-Care 01 Condition: Good - Discharge Diagnosis/Problem(s) (1) 39 weeks gestation of SNOMED Code(s): 11985296 ICD Code: Z3A.39 - 39 WEEKS GESTATION OF Status: Acute Current Visit: Yes (2) Elective induction of labor planned SNOMED Code(s): 155238233 ICD Code: [id number] - Status: Acute Current Visit: Yes (3) Seizure disorder SNOMED Code(s): 965465160 ICD Code: G40.909 - EPILEPSY, UNSP, NOT INTRACTABLE, WITHOUT STATUS EPILEPTICUS Status: Acute Current Visit: Yes (4) Vaginal delivery SNOMED Code(s): 527979768 ICD Code: O80 - ENCOUNTER FOR FULL-TERM UNCOMPLICATED DELIVERY Status: Acute Current Visit: Yes - Patient Summary/Data Complications: None Consults: None Recommended Follow-up Testing/Procedures: Follow up with Dr. Cruz in 5-6 weeks Neurology follow up in 6-8 weeks Hospital Course: 31 y/o at 39 3/7 wks presented for elective IOL. This was done with pitocin and AROM. She progressed well to complete dilation and underwent an uncomplicated . See delivery note. she did well and was discharged home on PPD#1. - Patient Instructions Diet: Regular Diet as Tolerated Activity: As Tolerated Activity, Other: Pelvic Rest for 6 weeks Driving: May Drive Today Showering/Bathing: May Shower Showering/Bathing, Other: May Bathe Notify Provider of: Fever, Increased Pain, Swelling and Redness, Drainage, Nausea and/or Vomiting - Discharge Plan Home Medications: Home Meds Acetaminophen with Codeine [Tylenol with Codeine #3 Tablet] 03/17/17 [History] [id number]/Iron Fumarate/FA/DSS [ 19 Tablet] 03/17/17 [History] Zonisamide [Zonegran] 1 cap PO BID 03/17/17 [History] Ibuprofen [IJD: Ibuprofen] 600 mg PO Q6H PRN #0 tablet 03/18/17 [Rx] Patient Handouts: Smoking Hazards, Home Care Instructions for Mom, Smoking Cessation, Tips for Success, Steps to Quit Smoking Referrals: Jerilyn Cruz MD [Physician] - (5-6 weeks for check ) - Discharge Summary/Plan Comment DC Time >30 min.: No - Patient Data Vitals - Most Recent: Last Vital Signs Temp 36.3 C 03/18/17 11:43 Pulse 64 03/18/17 11:43 Resp 17 03/18/17 11:43 BP 108/80 03/18/17 11:43 Pulse Ox 99 03/18/17 11:43 Weight - Most Recent: 111.856 kg I&O - Last 24 hours: Intake & Output 03/18/17 03/18/17 03/18/17 06:59 14:59 22:59 Intake Total 340 Balance 340 Lab Results - Last 24 hrs: Laboratory Results - last 24 hr 03/17/17 Range/Units 07:50 Blood Type A POSITIVE Gel Antibody Screen Negative Med Orders - Current: Current Medications Acetaminophen (Tylenol) 650 mg PO Q4H PRN PRN Reason: mild pain or fever Acetaminophen/Codeine Phosphate (Tylenol With Codeine No.3 300mg/30mg) 2 tab PO Q4H PRN PRN Reason: Pain (moderate 4-6) Last Admin: 03/18/17 19:26 Dose: 2 tab Benzocaine/Menthol (Dermoplast Pain Relief [place]) 0 gm TOP ASDIRECTED PRN PRN Reason: Perineal Comfort Measure Last Admin: 03/17/17 21:52 Dose: 1 applic Docusate Sodium (Colace) 100 mg PO BID PRN PRN Reason: Constipation Last Admin: 03/18/17 00:29 Dose: 100 mg Emollient Ointment (Lansinoh Hpa) 0 gm TOP ASDIRECTED PRN PRN Reason: Sore Nipples Ibuprofen (Motrin) 600 mg PO Q6H PRN PRN Reason: Mild pain or fever Last Admin: 03/18/17 11:39 Dose: 600 mg Zonisamide 100 Mg (Capsule) 0 each PO BID KATIE Last Admin: 03/18/17 09:40 Dose: 1 each Witch Kalie (Tucks) 1 pad TOP ASDIRECTED PRN PRN Reason: Hemorrhoid pain Last Admin: 03/17/17 21:52 Dose: 1 applic Discontinued Medications Acetaminophen (Tylenol) 650 mg PO Q4H PRN PRN Reason: Pain (Mild 1-3) and fever Diphenhydramine HCl (Benadryl) 25 mg IVPUSH Q6H PRN PRN Reason: Pruritis Ephedrine Sulfate (Ephedrine Sulfate) 5 mg IVPUSH ASDIRECTED PRN PRN Reason: Hypotension Fentanyl (Sublimaze) 100 mcg EPIDUR Q3H PRN PRN Reason: Pain Fentanyl (Sublimaze) 100 mcg IVPUSH ONETIME ONE Stop: 03/17/17 19:24 Last Admin: 03/17/17 19:20 Dose: 100 mcg Fentanyl/Bupivacaine HCl (Fentanyl/Bupivacaine/Ns 2 Mcg-0.125% 100 Ml) 100 ml EPIDUR ASDIRECTED KATIE Lactated Ringer's (Ringers, Lactated) 1,000 mls @ 40 mls/hr IV ASDIRECTED KATIE Last Admin: 03/17/17 08:34 Dose: 40 mls/hr Oxytocin/Lactated Ringer's (Pitocin In Lr 10 Units/1,000 Ml) 10 unit in 1,000 mls @ 500 mls/hr IV TITRATE KATIE PRN Reason: Protocol Oxytocin/Lactated Ringer's (Pitocin In Lr 10 Units/1,000 Ml) 10 unit in 1,000 mls @ 12 mls/hr IV TITRATE KATIE; 2 MUNITS/MIN PRN Reason: Protocol Last Titration: 03/17/17 19:11 Dose: 0 munits/min, 0 mls/hr Lidocaine HCl (Xylocaine 1%) Confirm Administered Dose 50 ml .ROUTE .STK-MED ONE Stop: 03/17/17 19:18 Last Admin: 03/17/17 19:26 Dose: Not Given Lidocaine HCl (Xylocaine 1%) 10 ml INJECT ONETIME ONE Stop: 03/17/17 19:25 Last Admin: 03/17/17 19:25 Dose: 10 ml Nalbuphine HCl (Nubain) 10 mg IVPUSH Q2H PRN PRN Reason: Pain (moderate 4-6) Last Admin: 03/17/17 18:21 Dose: 10 mg Non-Formulary Medication (Gabapentin) 400 mg PO TID KATIE Non-Formulary Medication (Zonisamide [Zonegran]) 1 cap PO BID KATIE Ondansetron HCl (Zofran) 4 mg IVPUSH Q4H PRN PRN Reason: Nausea/Vomiting Ondansetron HCl (Zofran) 4 mg IVPUSH ONETIME PRN PRN Reason: Nausea/Vomiting Zonisamide 100 Mg (Capsule) 0 each PO BID KATIE Last Admin: 03/17/17 08:35 Dose: 1 each Sodium Chloride (Saline Flush) 10 ml FLUSH ASDIRECTED PRN PRN Reason: Keep Vein Open *Q Meaningful Use (DIS) - VTE *Q VTE Criteria *Q: - Stroke *Q Stroke Criteria *Q: - AMI *Q AMI Criteria *Q:
== END 2017-03-18 20:00 | disposition home or self-care (01) | DRG 560 ==
LOC: JD.OB 07:03 → OBSVTOIN 19:11
PROVIDERS: ADMIT Obstetrics & Gynecology; ATTEND Obstetrics & Gynecology
PROC: 10E0XZZ Delivery of Products of Conception, External Approach (ICD-10-PCS; principal; 2017-03-17)
PROC: 0KQM0ZZ Repair Perineum Muscle, Open Approach (ICD-10-PCS; 2017-03-17)
PROC: 3E033VJ Introduction of Other Hormone into Peripheral Vein, Percutaneous Approach (ICD-10-PCS; 2017-03-17)
PROC: 10907ZC Drainage of Amniotic Fluid, Therapeutic from Products of Conception, Via Natural or Artificial Opening (ICD-10-PCS; 2017-03-17)
DX: O70.1 Second degree perineal laceration during delivery (principal); O69.81X0 Labor and delivery complicated by cord around neck, without compression, not applicable or unspecified; Z3A.39 39 weeks gestation of pregnancy; Z37.0 Single live birth; G40.909 Epilepsy, unspecified, not intractable, without status epilepticus; Z88.8 Allergy status to other drugs, medicaments and biological substances; Z79.899 Other long term (current) drug therapy; O99.334 Smoking (tobacco) complicating childbirth
CPT/HCPCS: 36415; 85027; 86850; 86900; 86901; A9270-GY; J2300; J2590; J3010; J7120